=== PATIENT | female | born 1995 | race African-American/Black ===

== ENCOUNTER 2020-03-14 13:15 | Outpatient (RCR) | payer OTHER, SELFPAY ==
--- NOTE | ~2020-03-14 | US_ITS ---
EXAMINATION: US OB follow up w BPP DATE: 03/14/2020 15:06 INDICATION: Large for gestational age. Third trimester. TECHNIQUE: Real-time pelvic ultrasound was performed. COMPARISON: None. FINDINGS: There is a single living fetus in vertex presentation. The placenta is anterior. heart rate is 130 beats per minute (bpm). The amniotic fluid index is 9.6 cm, which is normal. The following biometric data were obtained: Biparietal diameter (BPD): 9.0 cm; head circumference (HC): 32.9 cm; abdominal circumference (AC): 32 .8 cm; femur length (FL): 7.0 cm. These measurements are concordant. Estimated weight is 2969 g +/- 445 g, which correlates with 38th percentile when 04/02/20 is use d as estimated date of delivery. As single measurements, these parameters are each equal to the following estimated gestational ages w ith ranges of +/- 2 standard deviations: BPD: 36 weeks 4 days. HC: 37 weeks 2 days. AC: 36 weeks 5 days. FL: 35 weeks 6 days. estimated gestational age based solely on measurements from this exam is 36 weeks 4 days +/- 2 weeks 4 days. Biophysical profile performed by the technologist: breathing (30 sec sustained breathing in 30 minutes): 2 out of 2 movement (3 gross body movements in 30 minutes): 2 out of 2 tone (one episode of rxapwdn-yefwuzvpt-upuaygw limb movement): 2 out of 2 Amniotic fluid pocket (2 cm): 2 out of 2 Total score: 8 out of 8 IMPRESSION: 1. Single living fetus in vertex presentation. 2. Estimated weight is 2969 g +/- 445 g, which correlates with 38th percentile when 04/02/20 is used as estimated date of delivery. 3. Biophysical profile 8 out of 8. Reviewed, dictated and finalized at location A. IMPRESSION: 1. Single living fetus in vertex presentation. 2. Estimated weight is 2969 g +/- 445 g, which correlates with 38th perc entile when 04/02/20 is used as estimated date of delivery. 3. Biophysical profile 8 out of 8.
[2020-03-14 15:38] VITALS: BP 131/84; PULSE 121
== END 2020-03-30 12:54 | disposition home or self-care (01) ==
LOC: ANHOBOP 13:15
PROVIDERS: Visit Provider Obstetrics & Gynecology
DX: O36.63X0 Maternal care for excessive fetal growth, third trimester, not applicable or unspecified (principal); Z3A.37 37 weeks gestation of pregnancy
CPT/HCPCS: 59025; 76816; 76819

== ENCOUNTER 2020-03-30 04:57 | Inpatient (IN) | payer OTHER, SELFPAY ==
[2020-03-30] VITALS (36 sets, daily range): BP systolic 101–146; BP diastolic 49–108; PULSE 78–127; RESP 18; TEMP 36.3–36.7; BMI 35.9
--- NOTE | 2020-03-30 04:57 | LDADM ---
This patient, Richard Hernandez, was admitted to Labor/Delivery/Recovery 108 on 03/30/20 at 04:57. Plans for labor, pain management and were discussed with patient. Patient/family oriented to hospital policies and general routines including ID bracelet, bed and alarms, visiting hours, pain management, procedures, bathroom and other care routines, personal items, smoking policy, room service/diet and guest tray routines, security routines, and visiting hours. Patient/Family are encouraged to report perceived risks to care and to ask questions if they do not understand what they are told or what they should do. See OBIX for further documentation.
[2020-03-30 05:31] LABS: Basophils Percent Auto 0.3 % (0.2-1.2); Eosinophils Absolute Auto 0.1 K/mm3 (0-0.3); Eosinophils Percent Auto 0.9 % (0-4.4); Hematocrit 36.8 % (37.0-47.0); Hemoglobin 12.4 g/dL (12.0-15.0); Immature Granulocyte Absolute 0.12 K/mm3 (0.00-0.031); Immature Granulocyte Percent A 1.2 % (0-0.5); Lymphocytes Absolute Auto 2.52 K/mm3 (0.9-3.2); Mean Corpuscular HGB Conc 33.7 g/dl (32-36); Mean Corpuscular Hemoglobin 27.3 pg (26-34); Mean Corpuscular Volume 81.1 fl (80-100); Mean Platelet Volume 12.5 fl (7.4-10.4); Monocytes Absolute Auto 1.3 K/mm3 (0.1-0.6); Monocytes Percent Auto 13.3 % (2.6-8.5); Neutrophils Percent Auto 59.3 % (45.5-73.1); Platelet Count Result 154 k/mm3 (150-375); Red Blood Count 4.54 M/mm3 (4.2-5.4); Red Cell Distribution Width 13.7 % (11.5-14.5); White Blood Count 10.1 K/mm3 (4.5-10.0)
[2020-03-30] MEDS: OXYTOCIN 30 UNITS/NS 500 ML 30 UNITS/500 ML BAG IV CONT (05:43)
[2020-03-30] MEDS: LACTATED RINGERS 1,000 ML 125 ML IV CONT (05:43)
[2020-03-30 08:53] LABS: Rapid Plasma Reagin Non-Reactive (NonReactive)
--- NOTE | 2020-03-30 12:10 | PM.IMHP ---
H&P: HPI History of Present Illness Date/Time: 03/30/20 06:10 Chief complaint: Induction Narrative: Richard Hernandez is a 24 year old female AAF G1 at 39w4d here for Induction of labor H/O Obesity, impaired glucose tolerance, history of chlamydia, and low progesterone She understands her condition procedure and risks and agrees to proceedShe understands maternal or indications for delivery with the risk involved including but not limited to bleeding infection injury to bladder bowel baby pelvic vessels and DVT pneumoniae wound infections endometriosis UTI and risk of anesthesia Review of Systems Review of Systems: All systems reviewed & are unremarkable except as noted in HPI and below Constitutional: Constitutional: Reports no additional constitutional complaints Eyes: Eyes: Reports no additional eye complaints ENT: Reports system reviewed and no additional complaints, except as documented Cardiovascular: Cardiovascular: Reports no additional cardiovascular complaints Respiratory: Respiratory: Reports no additional respiratory complaints Gastrointestinal: Gastrointestinal: Reports no additional gastrointestinal complaints Genitourinary: Genitourinary: Reports no additional female genitourinary complaints Musculoskeletal: Musculoskeletal: Reports no additional musculoskeletal complaints Integumentary/Breasts: Skin/Breast: Reports system reviewed and no additional complaints, except as docu Neurologic: Reports system reviewed and no additional complaints, except as documented Psychiatric: Psychiatric: Reports no additional psychiatric complaints Endocrine: Endocrine: Reports no additional endocrine complaints Hematologic/Lymphatic: Hematologic/Lymphatic: Reports no additional hematologic/lymphatic complaints Allergic/Immunologic: Allergic/Immunologic: Reports no additional allergic/immunologic complaints [facility] Past Medical History Medical History (Updated 03/30/20 @ 15:11 by Valeriano Herron MD) Abnormal Pap smear of cervix History of chlamydia History of impaired glucose tolerance Obesity Family History Family History Father Diabetes mellitus Mother Diabetes mellitus Social History Social History (Updated 03/30/20 @ 15:07 by Valeriano Herron MD) Smoking status: Never smoker Second hand tobacco smoke exposure: No Alcohol intake: never Substance use: never Living arrangements: with family Occupation/Education: unemployed Gender identity (if verbalized by the patient): Female Sexual Orientation (if Verbalized by the Patient): Straight or Heterosexual Spiritual care concerns: No Agree to blood products: Yes Meds Home Medications and Allergies Home Medications Medication Instructions Recorded Confirmed Type [id number] fumarate-FA 1 tablet PO DAILY 03/05/20 03/05/20 History [] Allergies Allergy/AdvReac Type Severity Reaction Status Date / Time No Known Allergies Allergy Verified 03/05/20 12:32 Vital Signs Vital Signs - 24 hr 03/30/20 05:15 03/30/20 05:31 03/30/20 06:01 Temperature 97.5 F L Pulse Rate 109 H 108 H 78 Respiratory Rate 18 Blood Pressure 135/98 H 117/84 112/89 03/30/20 06:16 03/30/20 06:22 03/30/20 06:31 Temperature Pulse Rate 96 99 104 H Respiratory Rate Blood Pressure 120/95 H 131/83 131/86 03/30/20 07:00 03/30/20 07:01 03/30/20 07:30 Temperature 97.4 F L Pulse Rate 104 H 95 Respiratory Rate Blood Pressure 128/80 136/86 03/30/20 08:01 03/30/20 08:31 03/30/20 09:01 Temperature Pulse Rate 101 H 104 H 104 H Respiratory Rate Blood Pressure 107/83 122/84 109/87 03/30/20 10:00 03/30/20 10:25 03/30/20 11:01 Temperature 98.1 F Pulse Rate 110 H Respiratory Rate Blood Pressure 128/96 H 143/108 H 03/30/20 11:22 03/30/20 11:30 03/30/20 12:00 Temperature Pulse Rate 109 H 107 H 106 H Respiratory R
--- NOTE | 2020-03-30 14:36 | P.PNAN_ITS ---
Anes - Eval Pre Procedure Procedure: Labor Epidural Date/Time: 03/30/20 14:36 Pre Op Diagnosis: Induction Patient Data Age: 24 Gender: F Height: 1.63 m Weight: 95 kg Last Vital Signs Temp 36.7 C 03/30/20 10:25 Pulse 108 H 03/30/20 14:30 Resp 18 03/30/20 05:15 BP 138/86 03/30/20 14:30 Allergies Allergy/AdvReac Type Severity Reaction Status Date / Time No Known Allergies Allergy Verified 03/05/20 12:32 Home Medications Medication Instructions Recorded Confirmed Type [id number] fumarate-FA 1 tablet PO DAILY 03/05/20 03/05/20 History [] Laboratory Tests 03/30/20 03/30/20 03/30/20 05:19 05:20 05:20 WBC 10.1 K/mm3 H K/mm3 (4.5-10.0) RBC 4.54 M/mm3 M/mm3 (4.2-5.4) Hgb 12.4 g/dL g/dL (12.0-15.0) Hct 36.8 % L % (37.0-47.0) MCV 81.1 fl fl (80-100) MCH 27.3 pg pg (26-34) MCHC 33.7 g/dl g/dl (32-36) RDW 13.7 % % (11.5-14.5) Plt Count 154 k/mm3 k/mm3 (150-375) MPV 12.5 fl H fl (7.4-10.4) Immature Gran % (Auto) 1.2 % H % (0-0.5) Neut % (Auto) 59.3 % % (45.5-73.1) Lymph % (Auto) 25.0 % % (18.3-44.2) [place]nam % (Auto) 13.3 % H % (2.6-8.5) Eos % (Auto) 0.9 % % (0-4.4) Baso % (Auto) 0.3 % % (0.2-1.2) Lymph # (Auto) 2.52 K/mm3 K/mm3 (0.9-3.2) [place]nam # (Auto) 1.3 K/mm3 H K/mm3 (0.1-0.6) Eos # (Auto) 0.1 K/mm3 K/mm3 (0-0.3) Baso # (Auto) 0.0 K/mm3 K/mm3 (0.0-0.1) Abs Immat Gran (auto) 0.12 K/mm3 H K/mm3 (0.00-0.031) Absolute Neuts (auto) 6.0 K/mm3 K/mm3 (1.3-6.7) Absolute Nucleated RBC 0.0 K/mm3 K/mm3 (0.0-0.012) Nucleated RBC % 0.0 % % (0.0-0.2) RPR Non-reactive (NonReactive) Blood Type O Positive Antibody Screen Negative Patient hx anesthesia problems: none Family hx anesthesia problems: none PMFSH Family History Family History Father Diabetes mellitus Mother Diabetes mellitus Social History Social History Smoking status: Never smoker Substance use: never Gender identity (if verbalized by the patient): Female Spiritual care concerns: No Exam Day of Procedure 03/30/20 14:36 Patient weight: obese Heart: regular rate and rhythm Lungs: normal air movement Airway: Mallampati scale class III Neurological: alert and oriented
--- NOTE | 2020-03-30 15:13 | WPDHPUPDATE1 ---
History and Physical Update Update Date/Time: 03/30/20 15:13 History and Physical has been reviewed, including an updated exam of the patient. There are NO changes in the patient's condition. Risks, benefits, and alternatives have been discussed and questions answered. Patient agrees to proceed with procedure. Richard Hernandez is a 24 year old female AAF G1 at 39w4d here for Induction of labor H/O Obesity, impaired glucose tolerance, history of chlamydia, and low progesterone She understands her condition procedure and risks and agrees to proceedShe understands maternal or indications for delivery with the risk involved including but not limited to bleeding infection injury to bladder bowel baby pelvic vessels and DVT pneumoniae wound infections endometriosis UTI and risk of anesthesia
--- NOTE | 2020-03-30 15:14 | WPDOBADMIT ---
Obstetrics - Admit Note Admission Note: record reviewed. No pertinent additions to the history and/or any subsequent changes in the physical findings that are not consistent with the expected course of the were found. Additions to the history and/or subsequent changes in the physical findings follow. Mitzy Guerrerorebeccamiguel angelchaim Hernandez is a 24 year old female AAF G1 at 39w4d here for Induction of labor H/O Obesity, impaired glucose tolerance, history of chlamydia, and low progesterone She understands her condition procedure and risks and agrees to proceedShe understands maternal or indications for delivery with the risk involved including but not limited to bleeding infection injury to bladder bowel baby pelvic vessels and DVT pneumoniae wound infections endometriosis UTI and risk of anesthesia one.
--- NOTE | 2020-03-30 15:15 | PM.OBPNLAB ---
Pain Control Date/time seen: 03/30/20 15:15 Pain control: tolerating well Pelvic Exam Dilation (cm): 0 Effacement (%): 50 station: -4 Amniotic membrane status: Intact Contractions Monitor mode: External Contraction pattern: Regular Contraction intensity: Mild Status status: Category l Assessment and Plan Assessment: induction ongoing Plan: continuous present management
[2020-03-31] VITALS (25 sets, daily range): BP systolic 109–149; BP diastolic 58–115; PULSE 83–111; TEMP 37; O2SAT 98–100
[2020-03-31] MEDS: LACTATED RINGERS 1,000 ML 125 ML IV CONT (02:05)
--- NOTE | 2020-04-12 20:22 | PM.OBDSVD ---
DS: Admitting Diagnosis Admitting Diagnosis Admitting Diagnosis: Induction DS: Discharge Diagnosis Discharge Diagnosis (1) Failed induction of labor: Code(s): O61.9 - Failed induction of labor, unspecified Status: Acute OB - DS: Summary Hospital Course Time spent discussing smoking cessation with patient: 3 to 10 minutes OB Procedures : Ultrasound OB Procedures Intrapartum: Other OB Procedures: : Other Status at Discharge Functional status at discharge: independent ambulation Overall status at discharge: patient is back to baseline Time Spent with Patient Time attestation: Total time spent providing and/or coordinating discharge services: Exam Const: General: cooperative HENMT: Head: normal to inspection Eyes: General: appearance normal, both eyes and all related structures Neck: Neck: normal visual inspection Chest: Chest palpation & inspection: normal inspection of the chest Resp: Effort & Inspection: normal respiratory effort Cardio: Palpation: normal PMI GI: Inspection: normal to inspection : External Female Exam: normal external appearance Back/Spine/Pelvis: Back: no CVA tenderness Skin: General skin exam: normal color Neuro: General: patient oriented x3 Extrem: General: normal to inspection Psych: Appearance: grossly normal Mental Status: mental status grossly normal Discharge Plan Discharge Attending physician on discharge: Valeriano Herron Discharging Clinician: Valeriano Herron Anticipated Discharge Date/Time: 03/31/20 20:20 Patient Disposition: Home, Self-Care Activity: as tolerated Diet: as tolerated Discharge Instructions: OB ANTEPARTUM DISCHARGE INSTRUCTIONS This information is given to help you properly care for yourself at home after your discharge from the hospital. Follow these instructions until your doctor tells you otherwise. DIET: Eat Three Well Balanced Meals per Day Drink at Least Eight 8-Ounce Glasses of Caffeine-Free Beverages Daily Additional Diet Instructions: ACTIVITY: As Tolerated Additional Activity Instructions: RETURN TO LABOR AND DELIVERY IF YOU HAVE: Any Change In Baby's Normal Movement Pattern Any Leakage of Fluid Contractions 3-5 Minutes Apart with Increasing Intensity Vaginal Bleeding Additional Reasons to Return to Labor and Delivery: Contractions may feel like abdominal pain, tightening, cramping, pressure, back ache, or thigh ache. FOLLOW-UP CARE: Call Office and Make Appointment To see in/on 04/04/20 Valuables released to patient or family? N/A Medications from home returned to patient? N/A I Acknowledge Receipt of and Understand the Above Instructions IF YOU HAVE ANY QUESTIONS REGARDING THESE INSTRUCTIONS, PLEASE CALL [phone]. IF PROBLEMS ARISE, CALL YOUR PROVIDER. IF EMERGENCY CARE IS NEEDED, [facility] EMERGENCY ROOM IS AVAILABLE 24 HOURS A DAY. Stand Alone Forms: General Discharge Information Follow-up/Referrals: Valeriano Herron MD [Physician] - Discharge Medications: No Action hydrocodone-acetaminophen 5-325 mg Tablet 1 tab PO Q6H PRN (Reason: Moderate Pain (4-6)) Qty: 28 RF: 0 polysaccharide iron complex 150 mg iron Capsule 150 mg PO BIDWM Qty: 120 RF: 2 ibuprofen 600 mg Tablet 600 mg PO Q6H Qty: 100 RF: 1 28-800 mg-mcg Tablet 1 tablet PO DAILY Qty: 100 RF: 2 Date of admission: 03/30/20 04:57 Primary Care Provider: PHYSICIAN,POSTDOCTORAL SCIENTIST Admitting Provider: Valeriano Herron Attending physician on admission: Valeriano Herron Condition: Stable
== END 2020-03-31 05:30 | disposition home or self-care (01) | DRG 566 ==
PROVIDERS: Admitting Provider Obstetrics & Gynecology; Visit Provider Obstetrics & Gynecology
DX: O99.810 Abnormal glucose complicating pregnancy (principal); Z3A.39 39 weeks gestation of pregnancy; O61.0 Failed medical induction of labor; O99.214 Obesity complicating childbirth; E66.9 Obesity, unspecified; O98.313 Other infections with a predominantly sexual mode of transmission complicating pregnancy, third trimester; A56.8 Sexually transmitted chlamydial infection of other sites
CPT/HCPCS: 36415; 85025; 86592; 86850; 86900; 86901; J2590; J7120

== ENCOUNTER 2020-04-01 06:53 | Inpatient (IN) | payer OTHER, SELFPAY ==
--- NOTE | 2020-03-31 08:21 | PC.NURSE ---
Preadmission information recopied from original done on 03/05/20 by Valeria Frye RN.
--- NOTE | 2020-03-31 18:55 | PM.IMHP ---
H&P: HPI History of Present Illness Date/Time: 03/31/20 18:55 Chief complaint: failed induction Narrative: Richard Hernandez is a 24 year old female primigravida AAF presents for primary LTS c section at 39w4d. after failed induction due to pelvic outlet disorder with CPD and now need for primary section for delivery of healthy baby. Patient understands and accepts and agrees to procedure. Review of Systems Review of Systems: All systems reviewed & are unremarkable except as noted in HPI and below Constitutional: Constitutional: Reports no additional constitutional complaints Eyes: Eyes: Reports no additional eye complaints ENT: Reports system reviewed and no additional complaints, except as documented Cardiovascular: Cardiovascular: Reports no additional cardiovascular complaints Respiratory: Respiratory: Reports no additional respiratory complaints Gastrointestinal: Gastrointestinal: Reports no additional gastrointestinal complaints Genitourinary: Genitourinary: Reports no additional female genitourinary complaints Musculoskeletal: Musculoskeletal: Reports no additional musculoskeletal complaints Integumentary/Breasts: Skin/Breast: Reports system reviewed and no additional complaints, except as docu Neurologic: Reports system reviewed and no additional complaints, except as documented Psychiatric: Psychiatric: Reports no additional psychiatric complaints Endocrine: Endocrine: Reports no additional endocrine complaints Hematologic/Lymphatic: Hematologic/Lymphatic: Reports no additional hematologic/lymphatic complaints Allergic/Immunologic: Allergic/Immunologic: Reports no additional allergic/immunologic complaints PMF Past Medical History Medical History Abnormal Pap smear of cervix History of chlamydia History of impaired glucose tolerance Obesity Family History Family History Father Diabetes mellitus Mother Diabetes mellitus Social History Social History Smoking status: Never smoker Second hand tobacco smoke exposure: No Alcohol intake: never Substance use: never Gender identity (if verbalized by the patient): Female Spiritual care concerns: No Agree to blood products: Yes Meds Home Medications and Allergies Home Medications Medication Instructions Recorded Confirmed Type 1 tablet PO DAILY 03/05/20 03/05/20 History Allergies Allergy/AdvReac Type Severity Reaction Status Date / Time No Known Allergies Allergy Verified 03/05/20 12:32 Exam Const: General: cooperative, healthy appearing, comfortable, no acute distress, alert, awake and Physically active HENMT: Head: normal to inspection Eyes: General: appearance normal, both eyes and all related structures Neck: Neck: normal visual inspection and full ROM Chest: Chest palpation & inspection: normal inspection of the chest Breast/axilla inspection: normal inspection of the breasts Breast/axilla palpation: normal palpation of the breasts Resp: Effort & Inspection: normal respiratory effort Auscultation: clear to auscultation bilaterally Cardio: Jugular venous distension: no JVD Palpation: normal PMI Rate: regular rate Rhythm: regular rhythm Heart sounds: S1 normal heart sound present and S2 normal heart sound present GI: Inspection: normal to inspection and obesity GI Palp: Yes Soft to palpation Percussion: Yes normal to percussion Auscultation: normal bowel sounds : External Female Exam: normal external appearance Manual OB Exam: Not dilated nor effaced Back/Spine/Pelvis: Back: no CVA tenderness Cervical Spine: normal cervical lordosis Skin: General skin exam: normal color and no rashes or lesions noted Neuro: General: patient oriented x3, gait normal, tone normal, moves all extremities, Normal light touch and michelle
--- NOTE | 2020-03-31 19:09 | WPDHPUPDATE1 ---
History and Physical Update Update Date/Time: 04/01/20 07:09 History and Physical has been reviewed, including an updated exam of the patient. There are NO changes in the patient's condition. Risks, benefits, and alternatives have been discussed and questions answered. Patient agrees to proceed with procedure. Richard Hernandez is a 24 year old female primigravida AAF presents for primary LTS c section at 39w4d. after failed induction due to pelvic outlet disorder with CPD and now need for primary section for delivery of healthy baby. Patient understands and accepts and agrees to procedure.
--- NOTE | 2020-03-31 19:10 | WPDOBADMIT ---
Obstetrics - Admit Note Admission Note: record reviewed. No pertinent additions to the history and/or any subsequent changes in the physical findings that are not consistent with the expected course of the were found. Additions to the history and/or subsequent changes in the physical findings follow. None. Richard Hernandez is a 24 year old female primigravida AAF presents for primary LTS c section at 39w4d. after failed induction due to pelvic outlet disorder with CPD and now need for primary section for delivery of healthy baby. Patient understands and accepts and agrees to procedure.
--- NOTE | 2020-03-31 19:12 | PM.OBTRLD ---
OB - Triage/Final Diagnosis Visit Information Date of evaluation: 03/30/20 Comments/Additional reasons for admission: induction failed after 24hr pitocin and no cervix change discharged 0600 03/31/20 Evaluation Baseline heart rate: 144 Variability: Average (6-10) monitor accelerations: Present monitor decelerations: None Cervical dilation (cm): 0 Cervical effacement (%): 50 station: -4 Final Diagnosis (1) Failed induction of labor: Code(s): O61.9 - Failed induction of labor, unspecified Status: Acute
[2020-04-01] VITALS (55 sets, daily range): BP systolic 104–143; BP diastolic 49–114; PULSE 72–153; RESP 18; TEMP 36.5–37; O2SAT 95–100; BMI 36.3
--- NOTE | 2020-04-01 07:21 | WPDANESEPPF ---
Anes - Initial Pre Proc Eval Procedure: Operation Date: 04/01/20 09:00 Proposed Procedures p Primary Section - Valeriano Herron MD Date/Time: 04/01/20 07:21 Surgeon: Valeriano Herron MD Pre Op Diagnosis: C Section Patient Data Age: 24 Gender: F Height: Weight: Last Vital Signs Pulse 105 H 04/01/20 07:19 BP 143/92 H 04/01/20 07:19 Allergies Allergy/AdvReac Type Severity Reaction Status Date / Time No Known Allergies Allergy Verified 03/05/20 12:32 Home Medications Medication Instructions Recorded Confirmed Type 1 tablet PO DAILY 03/05/20 03/05/20 History Patient hx anesthesia problems: none Family hx anesthesia problems: none PMFSH Past Medical History Medical History Abnormal Pap smear of cervix CPD (cephalo-pelvic disproportion) Failed induction of labor History of chlamydia History of impaired glucose tolerance Obesity Family History Family History Father Diabetes mellitus Mother Diabetes mellitus Social History Social History Smoking status: Never smoker Second hand tobacco smoke exposure: No Alcohol intake: never Substance use: never Gender identity (if verbalized by the patient): Female Spiritual care concerns: No Agree to blood products: Yes Anes - Eval Final PreProcedure Day of Procedure 04/01/20 07:21 Patient weight: obese Heart: regular rate and rhythm Lungs: clear to auscultation Airway: Mallampati scale class II Neurological: alert and oriented Last oral intake: >/= 8 hours ASA classification: II Emergent: no Anesthetic plan: proceed Anesthesia type and monitoring: regional spinal and standard monitoring Informed Consent: The patient's anesthetic plan and its attendant risks and benefits were discussed with the patient/family/POA. Questions were solicited and answers provided to the satisfaction of the patient/family/POA.
[2020-04-01] MEDS: LACTATED RINGERS 1,000 ML 125 ML IV CONT ×2 (07:30→08:40)
[2020-04-01 07:44] LABS: Basophils Percent Auto 0.3 % (0.2-1.2); Eosinophils Absolute Auto 0.1 K/mm3 (0-0.3); Eosinophils Percent Auto 1.3 % (0-4.4); Hematocrit 37.1 % (37.0-47.0); Hemoglobin 12.6 g/dL (12.0-15.0); Immature Granulocyte Absolute 0.09 K/mm3 (0.00-0.031); Immature Granulocyte Percent A 1.2 % (0-0.5); Lymphocytes Absolute Auto 2.04 K/mm3 (0.9-3.2); Lymphocytes Percent Auto 26.8 % (18.3-44.2); Mean Corpuscular Hemoglobin 27.5 pg (26-34); Mean Corpuscular Volume 80.8 fl (80-100); Monocytes Absolute Auto 0.9 K/mm3 (0.1-0.6); Monocytes Percent Auto 12.2 % (2.6-8.5); Neutrophils Absolute Auto 4.4 K/mm3 (1.3-6.7); Neutrophils Percent Auto 58.2 % (45.5-73.1); Platelet Count Result 155 k/mm3 (150-375); Red Blood Count 4.59 M/mm3 (4.2-5.4); Red Cell Distribution Width 14.1 % (11.5-14.5); White Blood Count 7.6 K/mm3 (4.5-10.0)
--- NOTE | 2020-04-01 07:46 | LDADM ---
This patient, Richard Hernandez, was admitted to Labor/Delivery/Recovery 120 on 04/01/20 at 06:53. Plans for labor, pain management and were discussed with patient. Patient/family oriented to hospital policies and general routines including ID bracelet, bed and alarms, visiting hours, pain management, procedures, bathroom and other care routines, personal items, smoking policy, room service/diet and guest tray routines, security routines, and visiting hours. Patient/Family are encouraged to report perceived risks to care and to ask questions if they do not understand what they are told or what they should do. See OBIX for further documentation.
[2020-04-01] MEDS: ceFAZolin 2 GM/D5W 50 ML 2 GM/50 ML BAG IVPB (09:03)
--- NOTE | 2020-04-01 10:01 | PM.OBPRVD ---
OB - Delivery Note Procedure Delivery date: 04/01/20 Procedure: Procedures Operation Date: 04/01/20 09:00 Primary low-transverse section with delivery of viable male and placenta Intrapartal events: Ceph-Pelvic Disproportion and Failure to Progress in Labor ( failed induction) Induction method: per pitocin protocol Delivery monitor: external FHT and external uterine Route of delivery: ( primary low-transverse) Episiotomy description: None Laceration Description: None Specimen: Yes ( placenta, cord blood, cord blood gases) Estimated blood loss (mL): 445 Anesthesia type: Spinal Disposition: floor Complications: none [place] Baby Date of : 04/01/20 Time of : 09:26 Weeks of gestation at delivery: 40 Infant gender: Male (Gomezjoshua Perkinsar) Weight (pounds): 9 Weight (ounces): 2 presentation: vertex position: Left Occiput Transverse Placenta delivery description: Manual Removal and Normal Configuration cord vessel description: 3 Vessels score one minute: 7 score five minutes: 9
--- NOTE | 2020-04-01 10:09 | P.OP_ITS ---
Procedure Note - Detailed Date of procedure: 04/01/20 Pre-op diagnosis: C Section term Failed medical induction of labor Cephalopelvic disproportion Impaired glucose tolerance Varicella nonimmune Post-op diagnosis: same ( delivered viable male infant and placenta) Procedure performed: primary low-transverse section with delivery of viable male infant and placenta Description of procedure: informed consent obtained patient was taken to the operating room where spinal anesthetic was administered in the sitting position, the patient was laid in the supine position and a Luke catheter was inserted and then her abdomen was prepped and then draped in the usual sterile fashion and a time-out was performed. A Pfannenstiel incision was made in the skin and the abdomen was open in layers with electrocautery the fascia was undermined both superior and inferior the rectus muscle the midline with the peritoneum entered with electrocautery and digitally widen. Transverse incision was made to the uterus and rupture membranes revealed clear amniotic fluid the uterine incision was digitally dissected bilaterally and the vertex was not engaged was delivered via the abdominal incision with the Nose and Throat bulb suction and the cord clamped and cut the infant was handed to the nursery nurse in attendance scores 7 and 9 weight 9-21 and 0.5 inches long born at 9:26 a.m. taken to the nursery in stable condition normal transition. Placenta cord gases cord blood obtained placenta delivered intact three-vessel cord the uterus contracted well Pitocin given intravenously and 10 units given into the myometrium. With the uterus externalized blood clots membranes removed from the intrauterine cavity the uterine incision was then repaired in 2 layers with 0 Vicryl in a running interlocking fashion the 2nd being an imbricating stitch [id number] sutures were required along the left margin of the uterine incision hemostasis excellent following this the blood clots removed from the cul-de-sac with irrigation and the uterus was returned to the peritoneal cavity the sponge needle and instrument counts were correct the anterior peritoneum and rectus muscles reapproximated with 0 Vicryl suture running fashion the fascia was then closed with 2. Quill the S RS system bilaterally Pavel's fascia reapproximated 3 0 plain and the skin was closed with absorbable adenike INSORB system following this Dermabond used on the skin and a Mepilex dressing was placed to the skin patient was taken to the recovery room in stable condition sponge needle instrument counts correct Anesthesia: spinal Surgeon: Valeriano Herron MD Change Management Coordinator: surgical assistant x2 Estimated blood loss (mL): 445 IV fluids (mL): 2,600 Urine output (mL): 300 Drains: Yes ( Luke) Packing: No Pathology: yes ( placenta, cord blood, cord blood gases) Complications: None Condition: stable Disposition: floor Findings: viable male name is Gomez Garcia born at 926a.m. on 04/01/2019 spontaneous respirations and cry no gross abnormalities on initial examination scores 7 and 9 at 1 and 5 minutes normal transition taken to the nursery stable condition weight 9 lb 2 oz length 20-1/2 inches long Indication for section failed induction CPD Finding at surgery macrosomia Antibiotic prophylaxis Ancef 2 g VT prevention SCDs Uterus tubes ovaries normal Counts correct No complications Taken to recovery room stable condition Spinal with Duramorph postop pain management
[2020-04-01] MEDS: OXYTOCIN 30 UNITS/NS 500 ML 30 UNITS/500 ML BAG 125 UNITS IV CONT (11:47)
[2020-04-01] MEDS: DEXTROSE 5%/0.45% SOD CHL 1,000 ML 125 ML IV CONT (17:15)
[2020-04-01] MEDS: LORATADINE 10 MG TABLET PO (22:29)
[2020-04-02] MEDS: IBUPROFEN 600 MG TABLET PO ×2 (04:18→15:04)
[2020-04-02 04:20] VITALS: BP 140/86; PULSE 100; RESP 18; TEMP 37.3; O2SAT 98
[2020-04-02 04:58] LABS: Basophils Percent Auto 0.2 % (0.2-1.2); Eosinophils Absolute Auto 0.1 K/mm3 (0-0.3); Eosinophils Percent Auto 0.4 % (0-4.4); Hematocrit 33.5 % (37.0-47.0); Hemoglobin 11.1 g/dL (12.0-15.0); Immature Granulocyte Absolute 0.09 K/mm3 (0.00-0.031); Immature Granulocyte Percent A 0.7 % (0-0.5); Lymphocytes Absolute Auto 1.48 K/mm3 (0.9-3.2); Lymphocytes Percent Auto 11.7 % (18.3-44.2); Mean Corpuscular HGB Conc 33.1 g/dl (32-36); Mean Corpuscular Hemoglobin 27.2 pg (26-34); Mean Corpuscular Volume 82.1 fl (80-100); Mean Platelet Volume 12.6 fl (7.4-10.4); Monocytes Absolute Auto 1.4 K/mm3 (0.1-0.6); Monocytes Percent Auto 11.3 % (2.6-8.5); Neutrophils Absolute Auto 9.6 K/mm3 (1.3-6.7); Neutrophils Percent Auto 75.7 % (45.5-73.1); Platelet Count Result 140 k/mm3 (150-375); Red Blood Count 4.08 M/mm3 (4.2-5.4); White Blood Count 12.7 K/mm3 (4.5-10.0)
[2020-04-02] MEDS: DOCUSATE SODIUM 100 MG CAPSULE PO (08:39)
[2020-04-02] MEDS: MULTIVIT/MIN/PREN/FOL AC/IRON TABLET 1 TAB PO (08:39)
[2020-04-02 08:40] VITALS: BP 112/66; PULSE 97; RESP 20; TEMP 36.5
--- NOTE | 2020-04-02 09:46 | WPDANLDPN2 ---
Anes-Prog Note L&D Date/Time: 04/02/20 09:46 Comfortable throughout: section Neuraxial method: spinal Epidural/Spinal procedure site: clean & non-tender Neuro status: Neuro function grossly intact. Cardiovascular status: normal Respiratory status: normal Airway patency: baseline Mental status: baseline Post-Op hydration status: normal Vital Signs: Last Vital Signs Temp 36.5 C 04/02/20 08:40 Pulse 97 04/02/20 08:40 Resp 20 04/02/20 08:40 BP 112/66 04/02/20 08:40 Pulse Ox 98 04/02/20 04:20 Pain score (VAS): 06/05 I/O: Intake & Output 04/01/20 04/02/20 04/02/20 23:59 07:59 15:59 Intake Total 1500 800 500 Output Total 2750 1450 Balance -1250 -650 500 Post-procedural complaints: none Patient feedback: Patient satisfied with anesthetic care.
--- NOTE | 2020-04-02 09:46 | WPDANLDNPN2 ---
Anes-Prog Note L&D-Neuraxial Date/Time: 04/02/20 09:46 Neuraxial medications: intrathecal PF morphine Opiod-related complaints: none Patient feedback: Patient satisfied with post-operative pain management.
--- NOTE | 2020-04-02 12:48 | P.PNOB_ITS ---
OB - PN: Subj Subjective Date/time seen: 04/02/20 12:48 POD#1 She reports doing well today. Her pain is controlled w/ PO pain meds. She has tolerated regular diet. She has ambulated. She is voiding and passing flatus. She reports her bleeding is light. She is bottle feeding. She would like her son to be circumcised. She would like to go home tomorrow. She denies fever, chills, headaches, vision changes, nausea, vomiting, shortness of breath, chest pain, dizziness or palpitations. OB - PN: Obj Data Labs CBC & Chem 7: 04/02/20 04:27 Labs: Laboratory Results - last 24 hr 04/01/20 04/02/20 07:36 04:27 WBC 12.7 H RBC 4.08 L Hgb 11.1 L Hct 33.5 L MCV 82.1 MCH 27.2 MCHC 33.1 RDW 14.0 Plt Count 140 L MPV 12.6 H Immature Gran % (Auto) 0.7 H Neut % (Auto) 75.7 H Lymph % (Auto) 11.7 L [place] % (Auto) 11.3 H Eos % (Auto) 0.4 Baso % (Auto) 0.2 Lymph # (Auto) 1.48 [place] # (Auto) 1.4 H Eos # (Auto) 0.1 Baso # (Auto) 0.0 Abs Immat Gran (auto) 0.09 H Absolute Neuts (auto) 9.6 H Absolute Nucleated RBC 0.0 Nucleated RBC % 0.0 Blood Type O Positive OB - PN A/P Assessment and Plan (1) Delivery by elective section: Code(s): O82 - Encounter for delivery without indication Status: Acute Plan day: 1 Plan: routine care, discharge home (tomorrow) and follow up 6 weeks (w/ Dr. Herron) Comments: ER return precautions discussed Time Spent With Patient Time: Total time spent is greater than 50% in coordination of care (as documented) at patient's floor/unit and/or counseling patient: Time with patient: less than 15 minutes Review of Systems Review of Systems: All systems reviewed & are unremarkable except as noted in HPI and below (HPI) Exam Const: General: cooperative, healthy appearing, comfortable and no acute distress Resp: Effort & Inspection: normal respiratory effort Auscultation: clear to auscultation bilaterally Cardio: Rate: regular rate GI: Inspection: normal to inspection, non-distended and incision (covered w/ clean dressing) GI Palp: Yes abdominal tenderness (appropriate) and Yes Soft to palpation Auscultation: normal bowel sounds : Other: fundus firm at umbilicus Skin: General skin exam: normal color Neuro: General: patient oriented x3 Psych: Appearance: grossly normal and well kempt Affect: normal affect Attitude: cooperative
[2020-04-02 19:45] VITALS: BP 128/74; PULSE 85; RESP 18; TEMP 36.7; O2SAT 100
--- NOTE | 2020-04-02 19:45 | PC.NURSE ---
Patient viewed the discharge video Mother & Baby Care, The First Two Weeks . Patient was given the opportunity and encouraged to ask questions. Patient verbalized understanding of information shared and has been given the mother/baby guide for home reference.
[2020-04-03 09:00] VITALS: BP 124/75; PULSE 94; RESP 20; TEMP 36.8
[2020-04-03] MEDS: IBUPROFEN 600 MG TABLET PO (09:02)
[2020-04-03] MEDS: DOCUSATE SODIUM 100 MG CAPSULE PO (09:02)
[2020-04-03] MEDS: MULTIVIT/MIN/PREN/FOL AC/IRON TABLET 1 TAB PO (09:02)
--- NOTE | 2020-04-03 10:25 | PM.OBDSVD ---
DS: Admitting Diagnosis Admitting Diagnosis Admitting Diagnosis: C Section term Failed induction Cephalopelvic disproportion Impaired glucose tolerance Varicella nonimmune Obesity DS: Discharge Diagnosis Discharge Diagnosis (1) Term delivered: Code(s): O80 - Encounter for full-term uncomplicated delivery Status: Acute (2) Delivery by elective section: Code(s): O82 - Encounter for delivery without indication Status: Acute (3) CPD (cephalo-pelvic disproportion): Code(s): O33.9 - Maternal care for disproportion, unspecified Status: Acute (4) Failed induction of labor: Code(s): O61.9 - Failed induction of labor, unspecified Status: Acute (5) Maternal varicella, non-immune: Code(s): O09.899 - Supervision of other high risk pregnancies, unspecified trimester; Z28.3 - Underimmunization status Status: Acute (6) History of impaired glucose tolerance: Code(s): Z87.898 - Personal history of other specified conditions Status: Acute (7) Obesity: Code(s): E66.9 - Obesity, unspecified Status: Acute OB - DS: Summary Hospital Course Time spent discussing smoking cessation with patient: 3 to 10 minutes OB Procedures : Ultrasound OB Procedures Intrapartum: ( primary) low cervical, transverse OB Procedures: : None Peripartum Data Delivery Method: Section ( primary low-transverse) Laceration Description: None Episiotomy description: None Procedures: Procedures Operation Date: 04/01/20 09:00 primary low transverse section with delivery of viable male infant and placenta complications: none Renner 1: Gender: Male (Gomez Garcia 9lb2oz) Disposition of : home Status at Discharge Functional status at discharge: independent ambulation Overall status at discharge: patient is back to baseline Time Spent with Patient Time attestation: Total time spent providing and/or coordinating discharge services: Time spent: Less than 30 minutes Exam Const: General: cooperative, healthy appearing, comfortable, well developed, alert, awake and Physically active Nutritional Appearance: average body habitus Orientation/consciousness: oriented to person Limitations: no limitations HENMT: Head: normal to inspection Eyes: General: appearance normal, both eyes and all related structures Neck: Neck: normal visual inspection and full ROM Chest: Chest palpation & inspection: normal inspection of the chest Breast/axilla inspection: normal inspection of the breasts Breast/axilla palpation: normal palpation of the breasts Resp: Effort & Inspection: normal respiratory effort Auscultation: clear to auscultation bilaterally Cardio: Jugular venous distension: no JVD Palpation: normal PMI Rate: regular rate Rhythm: regular rhythm Heart sounds: S1 normal heart sound present and S2 normal heart sound present GI: Inspection: normal to inspection, incision ( dressing dry and intact) and obesity GI Palp: Yes Soft to palpation and Yes Firmness to palpation present (GI) ( uterus) Percussion: Yes normal to percussion Auscultation: normal bowel sounds : General: Yes no CVA tenderness External Female Exam: normal external appearance Urinary Catheter: Urinary Catheter: urine clear Back/Spine/Pelvis: Back: no CVA tenderness Cervical Spine: normal cervical lordosis Skin: General skin exam: normal color and no rashes or lesions noted Neuro: General: oriented to person, patient oriented x3, gait normal, tone normal, moves all extremities, Normal light touch and pain sensation, no meningeal signs, no focal motor deficits and CN's II-XI intact bilaterally Cognition (Neuro): normal cognition Speech: normal speech Gait exam (Neuro): Normal gait present Motor exam (neuro): 5/5 motor strength present throughout Sensory Exam: normal sensation Extrem: Gene
--- NOTE | 2020-04-03 12:01 | PC.NURSE ---
Patient's father called to the desk twice to ask when the patient would be discharged home. [facility]. He was informed that we were awaiting discharge from the substation manager and that once the orders were entered we could proceed with discharge. Pt's father very upset on the phone because he needed to be at work at 1300 and he felt that we were not acting with any urgency. He stated that we were sitting here drinking coffee and that we were not busy because there were no cars in the parking lot. Dr. Walker notified of pt's ride situation and he agreed to come to the nursery to discharge the . Mother updated that substation manager had been called and that he would be up to see baby as soon as he could. Mother and discharged as quickly as possible to accommodate their needs. Security notified to be on standby when pt was walked out in case father became verbally aggressive again. Pt's father was happy and agreeable when we got to the vehicle.
== END 2020-04-03 12:01 | disposition home or self-care (01) | DRG 540 ==
LOC: ANHLDR 10:34 → ANHOB2 12:37
PROVIDERS: Admitting Provider Obstetrics & Gynecology; Visit Provider Obstetrics & Gynecology
PROC: 10D00Z1 Extraction of Products of Conception, Low, Open Approach (ICD-10-PCS; CPT 59514; principal; 2020-04-01 09:00)
DX: O61.0 Failed medical induction of labor (principal); Z37.0 Single live birth; Z3A.39 39 weeks gestation of pregnancy; O33.5XX0 Maternal care for disproportion due to unusually large fetus, not applicable or unspecified; O99.214 Obesity complicating childbirth; E66.9 Obesity, unspecified
CPT/HCPCS: 36415; 85025; 88307; A9270; J0131; J0690; J1200; J2274; J2370; J2405; J2590; J7120

== ENCOUNTER → 2020-09-20 00:28 | Outpatient (CLI) | payer OTHER, SELFPAY ==
[2020-09-20 20:47] LABS: SARS-CoV-2 RNA PCR Positive
== END ==
PROVIDERS: PCP Physician Assistant; Visit Provider Obstetrics & Gynecology
DX: Z01.812 Encounter for preprocedural laboratory examination (principal); U07.1 COVID-19
CPT/HCPCS: C9803; U0003; U0005

== ENCOUNTER 2020-10-21 00:41 | Day surgery (SDC) | payer OTHER, SELFPAY ==
[2020-09-14 09:50] VITALS: BMI 29.1
--- NOTE | 2020-10-12 12:25 | PC.NURSE ---
Pt tested positive for Covid 09/20/20 - only symptoms were loss of taste and smell. Pt states no other changes in medical history or medications. New pre-op instructions reviewed with pt. Pt denies questions at this time.
--- NOTE | 2020-10-21 07:10 | PM.IMHP ---
H&P: HPI History of Present Illness Date/Time: 10/21/20 07:10 24-year-old female 1 para 1, 1 living child with a history of HPV with abnormal Pap smear HGSIL underwent colposcopy with cervical biopsies and ECC which revealed severe dysplasia of the cervix MAYITO 3 with endocervical involvement here now for LEEP loop electrosurgical excision procedure she understands her condition procedure and risks involved risk bleeding infection injury to the cervix risk of anesthesia she agrees to proceed informed consent obtained Chief Complaint: MAYITO 3 Review of Systems Review of Systems: All systems reviewed & are unremarkable except as noted in HPI and below PMFSH Past Medical History Medical History (Updated 10/21/20 @ 07:17 by Valeriano Herron MD) Abnormal Pap smear of cervix MAYITO III (cervical intraepithelial neoplasia grade III) with severe dysplasia CPD (cephalo-pelvic disproportion) Failed induction of labor HGSIL (high grade squamous intraepithelial dysplasia) History of chlamydia History of impaired glucose tolerance HPV (human papilloma virus) infection Obesity Surgical History Surgical History History of Family History Family History Father Diabetes mellitus Mother Diabetes mellitus Social History Social History Smoking status: Never smoker Second hand tobacco smoke exposure: No Alcohol intake: never Substance use: never Substance use type: does not use Living arrangements: with family Gender identity (if verbalized by the patient): Female Spiritual care concerns: No Agree to blood products: Yes Meds Home Medications and Allergies Home Medications Medication Instructions Recorded Confirmed Type No Home Medications 09/14/20 10/12/20 History Allergies Allergy/AdvReac Type Severity Reaction Status Date / Time No Known Allergies Allergy Verified 10/12/20 12:25 Exam Const: General: cooperative, healthy appearing, comfortable, no acute distress, well developed, alert, awake and Physically active HENMT: Head: normal to inspection Eyes: General: appearance normal, both eyes and all related structures Neck: Neck: normal visual inspection Chest: Chest palpation & inspection: normal inspection of the chest Resp: Effort & Inspection: normal respiratory effort Cardio: Rate: regular rate Rhythm: regular rhythm GI: Inspection: normal to inspection GI Palp: Yes Soft to palpation : External Female Exam: normal external appearance Back/Spine/Pelvis: Back: no CVA tenderness Skin: General skin exam: normal color Neuro: General: patient oriented x3, gait normal, tone normal and moves all extremities Extrem: General: normal to inspection Psych: Appearance: grossly normal Mental Status: mental status grossly normal Speech and movement: Normal speech and movement present Affect: normal affect Attitude: cooperative Thought process: Normal thought process present Thought content: Yes Normal thought content present Insight: Good insight present (Psych) Judgement: Good judgement present (Psych) H&P: Results Labs Labs: cervical biopsies revealed severe dysplasia with endocervical involvement Assessment and Plan Assessment and plan (1) HGSIL (high grade squamous intraepithelial dysplasia): Status: Acute (2) MAYITO III (cervical intraepithelial neoplasia grade III) with severe dysplasia: Code(s): D06.9 - Carcinoma in situ of cervix, unspecified Status: Acute (3) HPV (human papilloma virus) infection: Code(s): B97.7 - Papillomavirus as the cause of diseases classified elsewhere Status: Acute Additional Plan LEEP loop electrosurgical excision procedure Quality If No VTE Prophylaxis Answer both mechanical and pharmacologic: Reason no
--- NOTE | 2020-10-21 07:14 | WPDHPUPDATE1 ---
History and Physical Update Update Date/Time: 10/21/20 07:14 History and Physical has been reviewed, including an updated exam of the patient. There are NO changes in the patient's condition. Risks, benefits, and alternatives have been discussed and questions answered. Patient agrees to proceed with procedure. 24-year-old female 1 para 1, 1 living child with a history of HPV with abnormal Pap smear HGSIL underwent colposcopy with cervical biopsies and ECC which revealed severe dysplasia of the cervix MAYITO 3 with endocervical involvement here now for LEEP loop electrosurgical excision procedure she understands her condition procedure and risks involved risk bleeding infection injury to the cervix risk of anesthesia she agrees to proceed informed consent obtained
[2020-10-21 11:04] VITALS: BP 128/79; PULSE 81; RESP 16; TEMP 36.5; O2SAT 100
[2020-10-21] MEDS: ACETAMINOPHEN 500 MG TABLET 1000 MG PO (11:24)
[2020-10-21] MEDS: LACTATED RINGERS 1,000 ML 30 ML IV CONT (11:37)
--- NOTE | 2020-10-21 11:57 | WPDANESEPPF ---
Anes - Initial Pre Proc Eval Procedure: Operation Date: 10/21/20 13:00 Proposed Procedures p Loop Electrical Excision Procedure - Valeriano Herron MD Date/Time: 10/21/20 11:57 Surgeon: Valeriano Herron MD Pre Op Diagnosis: D06.9 Patient Data Age: 24 Gender: F Height: 5 ft 4 in Weight: 78.85 kg Last Vital Signs Temp 36.5 C 10/21/20 11:04 Pulse 81 10/21/20 11:04 Resp 16 10/21/20 11:04 BP 128/79 10/21/20 11:04 Pulse Ox 100 10/21/20 11:04 Allergies Allergy/AdvReac Type Severity Reaction Status Date / Time No Known Allergies Allergy Verified 10/21/20 11:23 Home Medications Medication Instructions Recorded Confirmed Type No Home Medications 09/14/20 10/21/20 History Patient hx anesthesia problems: none Family hx anesthesia problems: none PMFSH Past Medical History Medical History Abnormal Pap smear of cervix MAYITO III (cervical intraepithelial neoplasia grade III) with severe dysplasia CPD (cephalo-pelvic disproportion) Failed induction of labor HGSIL (high grade squamous intraepithelial dysplasia) History of chlamydia History of impaired glucose tolerance HPV (human papilloma virus) infection Obesity Surgical History Surgical History History of Family History Family History Father Diabetes mellitus Mother Diabetes mellitus Social History Social History Smoking status: Never smoker Second hand tobacco smoke exposure: No Alcohol intake: never Substance use: never Substance use type: does not use Living arrangements: with family Gender identity (if verbalized by the patient): Female Spiritual care concerns: No Agree to blood products: Yes Anes - Eval Final PreProcedure Day of Procedure 10/21/20 11:57 Patient weight: overweight Heart: regular rate and rhythm Lungs: clear to auscultation Airway: Mallampati scale class II Neurological: alert and oriented Last oral intake: >/= 8 hours ASA classification: II Emergent: no Anesthetic plan: proceed Anesthesia type and monitoring: general GIVS and standard monitoring Informed Consent: The patient's anesthetic plan and its attendant risks and benefits were discussed with the patient/family/POA. Questions were solicited and answers provided to the satisfaction of the patient/family/POA.
--- NOTE | 2020-10-21 13:23 | PM.PROC ---
Procedure Note - Detailed Date of procedure: 10/21/20 Pre-op diagnosis: D06.9 MAYITO-III Post-op diagnosis: same (MAYITO 3) Procedure performed: LEEP loop electrosurgical excision procedure Description of procedure: Informed consent obtained patient taken to the operating room given IV anesthesia placed in the semilithotomy position in David stirrups and then prepped and draped in sterile fashion. A time-out was performed. Weighted speculum was placed into the vagina and anterior retractor was placed, sutures were placed of 0 Vicryl at 3 and 9:00 a.m. of the cervix. Ascetic acid wash of the cervix followed by Lugol staining revealed the nonstaining areas the endocervix. Medium loop was then utilized to excise the ectocervix. Small loop was used to excise the endocervix. Ball electrode was used to achieve hemostasis. Monsel's solution was applied for hemostasis. The sutures were cut across the cervix and the patient procedure was completed. The instruments removed. Sponge needle instrument counts were correct complications none endocervix and ectocervix sent to pathology. Implants: None Anesthesia: MAC Surgeon: Valeriano Herron MD Taxi Driver Supervisor: assistant tennis professional times to julian Estimated blood loss (mL): 0 IV fluids (mL): 500 Urine output (mL): 100 Drains: No Packing: No Pathology: yes (LEEP ectocervix and endocervix) Complications: None Condition: stable Disposition: PACU Findings: Endocervix was disease nonstaining areas identified hemostasis excellent with sutures and Monsel's solution. Antibiotic prophylaxis Ancef 2 g
[2020-10-21 13:28] VITALS: BP 113/73; PULSE 75; RESP 12; O2SAT 96
--- NOTE | 2020-10-21 13:29 | PM.DS ---
DS: Admitting Diagnosis Admitting Diagnosis Admitting Diagnosis: MAYITO-III DS: Discharge Diagnosis Discharge Diagnosis (1) HPV (human papilloma virus) infection: Code(s): B97.7 - Papillomavirus as the cause of diseases classified elsewhere Status: Acute (2) MAYITO III (cervical intraepithelial neoplasia grade III) with severe dysplasia: Code(s): D06.9 - Carcinoma in situ of cervix, unspecified Status: Acute (3) HGSIL (high grade squamous intraepithelial dysplasia): Status: Acute DS: Summary Hospital Course Reason for hospitalization: Says MAYITO-III LEEP procedure Hospital Course: Uncomplicated Time spent discussing smoking cessation with patient: 3 to 10 minutes Status at Discharge Functional status at discharge: independent ambulation Overall status at discharge: patient is back to baseline Time Spent with Patient Time attestation: Total time spent providing and/or coordinating discharge services: Time spent: Less than 30 minutes Exam Const: General: cooperative HENMT: Head: normal to inspection Eyes: General: appearance normal, both eyes and all related structures Neck: Neck: normal visual inspection Chest: Chest palpation & inspection: normal inspection of the chest Resp: Effort & Inspection: normal respiratory effort Cardio: Rate: regular rate GI: Inspection: normal to inspection : External Female Exam: normal external appearance Back/Spine/Pelvis: Back: no CVA tenderness Skin: General skin exam: normal color Neuro: General: patient oriented x3 Extrem: General: normal to inspection Psych: Appearance: grossly normal DS: Data Data Completed and Pending Pending studies at discharge: Pending at discharge 10/21/20 13:18 Surgical [PTH] Routine Discharge Plan Discharge Patient Disposition: Home, Self-Care Discharge Instructions: Routine Stand Alone Forms: General Discharge Instructions Follow-up/Referrals: Valeriano Herron MD [Physician] - 6 Weeks Discharge Medications: New ibuprofen 600 mg tablet 600 mg PO Q6H PRN (Reason: pain) Qty: 30 RF: 0 Quality If No VTE Prophylaxis Answer both mechanical and pharmacologic: Reason no mechanical VTE proph: low risk/not indicated Reason no pharmacologic proph: low risk/not indicated
[2020-10-21 13:31] VITALS: BP 113/73; PULSE 82; O2SAT 100
[2020-10-21 13:45] VITALS: BP 124/63; PULSE 71
[2020-10-21 14:12] VITALS: BP 136/79; PULSE 78
[2020-10-21 14:15] VITALS: BP 135/75; PULSE 62; RESP 16
== END 2020-10-21 14:30 | disposition home or self-care (01) ==
PROVIDERS: PCP Physician Assistant; Visit Provider Obstetrics & Gynecology
PROC: 0UBC7ZZ Excision of Cervix, Via Natural or Artificial Opening (ICD-10-PCS; CPT 57522; principal; 2020-10-21 13:00)
DX: D06.1 Carcinoma in situ of exocervix (principal); A63.0 Anogenital (venereal) warts; B97.7 Papillomavirus as the cause of diseases classified elsewhere; E66.9 Obesity, unspecified; Z68.29 Body mass index [BMI] 29.0-29.9, adult
CPT/HCPCS: 57522; 88305; A9270; J0690; J2250; J2704; J3010; J7120

== ENCOUNTER 2023-01-29 15:32 | Emergency (ER) | payer OTHER, SELFPAY ==
[2023-01-29 15:42] VITALS: BP 109/59; PULSE 69; RESP 16; TEMP 35.8; O2SAT 99
--- NOTE | 2023-01-29 15:43 | ED.GENADULT ---
HPI - General Adult General Chief complaint: Nausea/Vomiting/Diarrhea Stated complaint: not able to keep food down,left side ear/head Time Seen by Provider: 01/29/23 15:43 Source: patient, RN notes reviewed and old records reviewed Mode of arrival: ambulatory Limitations: no limitations History of Present Illness HPI narrative: 27-year-old female who is 8 weeks presents to the [facility] with a headache and vomiting since this morning. States that she has a history of migraines but states it is worse than her normal. Has not even been able to keep water down. Ob is located in [facility]. Has not contacted OB. Denies fevers. No urinary symptoms. Onset (ago): hour(s) Treatments prior to arrival: none Related Data Home Medications Medication Instructions Recorded Confirmed No Home Medications 01/29/23 01/29/23 Allergies Allergy/AdvReac Type Severity Reaction Status Date / Time No Known Allergies Allergy Verified 01/29/23 16:16 Review of Systems Review of Systems: All systems reviewed & are unremarkable except as noted in HPI and below Constitutional: Constitutional: Reports as per HPI and Reports headache(s) Eyes: Eyes: Reports no additional eye complaints ENT: Reports system reviewed and no additional complaints, except as documented Cardiovascular: Cardiovascular: Reports no additional cardiovascular complaints, Denies chest pain and Denies dyspnea Respiratory: Respiratory: Reports no additional respiratory complaints, Denies chest congestion, Denies cough and Denies dyspnea Gastrointestinal: Gastrointestinal: Reports as per HPI, Denies abdominal pain, Reports nausea and Reports vomiting Musculoskeletal: Musculoskeletal: Reports no additional musculoskeletal complaints Integumentary/Breasts: Skin/Breast: Reports system reviewed and no additional complaints, except as docu Neurologic: Reports system reviewed and no additional complaints, except as documented Psychiatric: Psychiatric: Reports no additional psychiatric complaints Allergic/Immunologic: Allergic/Immunologic: Reports no additional allergic/immunologic complaints PMFSH Past Medical History Medical History Abnormal Pap smear of cervix MAYITO III (cervical intraepithelial neoplasia grade III) with severe dysplasia CPD (cephalo-pelvic disproportion) Failed induction of labor HGSIL (high grade squamous intraepithelial dysplasia) History of chlamydia History of impaired glucose tolerance HPV (human papilloma virus) infection Obesity Surgical History Surgical History History of Family History Family History Father Diabetes mellitus Mother Diabetes mellitus Social History Social History Smoking status: Never smoker Second hand tobacco smoke exposure: No Alcohol intake: never Substance use: never Substance use type: does not use Living arrangements: with family Occupation/Education: unemployed Gender identity (if verbalized by the patient): Female Sexual Orientation (if Verbalized by the Patient): Straight or Heterosexual Spiritual care concerns: No Agree to blood products: Yes Comments At the time of my signature, I reviewed and agree with the nursing past medical, surgical, social, and family history. There is no relevant family history pertinent to the patient complaint. Exam Const: General: cooperative, no acute distress, well developed, alert, ill appearing acutely (Mild), uncomfortable and well nourished Nutritional Appearance: well nourished Orientation/consciousness: patient oriented x3 Limitations: no limitations HENMT: Head: normal to inspection Ears: hearing grossly normal bilaterally, external ears normal, TM's normal bilaterally and EAC's normal Face/No
== END 2023-01-29 15:53 | disposition short-term general hospital (02) ==
LOC: EXPCOLL 15:37
PROVIDERS: Emergency Provider Nurse Practitioner; PCP Physician Assistant
DX: R51.9 Headache, unspecified (principal); R11.2 Nausea with vomiting, unspecified
CPT/HCPCS: 99212; G0463

== ENCOUNTER 2023-01-29 16:16 | Emergency (ER) | payer OTHER, SELFPAY ==
[2023-01-29 18:01] VITALS: BP 124/72; PULSE 60; RESP 16; TEMP 36.8; O2SAT 98
[2023-01-29 23:41] VITALS: BP 127/86; PULSE 79; RESP 18; O2SAT 100
[2023-01-29 23:58] LABS: Basophils Percent Auto 0.2 % (0.2-1.2); Hematocrit 41.6 % (37.0-47.0); Hemoglobin 13.8 g/dL (12.0-15.0); Immature Granulocyte Absolute 0.06 K/mm3 (0.00-0.031); Immature Granulocyte Percent A 0.5 % (0-0.5); Lymphocytes Absolute Auto 1.75 K/mm3 (0.9-3.2); Lymphocytes Percent Auto 14.8 % (18.3-44.2); Mean Corpuscular HGB Conc 33.2 g/dl (32-36); Mean Corpuscular Hemoglobin 27.9 pg (26-34); Mean Corpuscular Volume 84.2 fl (80-100); Mean Platelet Volume 11.3 fl (7.4-10.4); Monocytes Percent Auto 8.2 % (2.6-8.5); Neutrophils Percent Auto 76.3 % (45.5-73.1); Platelet Count Result 209 k/mm3 (150-375); Red Blood Count 4.94 M/mm3 (4.2-5.4); Red Cell Distribution Width 13.8 % (11.5-14.5); White Blood Count 11.8 K/mm3 (4.5-10.0)
[2023-01-30 00:09] LABS: Alanine Aminotransferase 19 U/L (6-35); Albumin Level 4.6 g/dL (3.5-5.1); Alkaline Phosphatase 57 U/L (38-126); Anion Gap 10 mmol/L (8-16); Aspartate Amino Transferase 23 U/L (14-36); Bilirubin,Total 0.4 mg/dL (0.2-1.3); Blood Urea Nitrogen 13 mg/dL (7-17); Calcium 9.9 mg/dL (8.4-10.2); Carbon Dioxide 22 mmol/L (22-30); Chloride 102 mmol/L (98-107); Estimated CRCL calculation 145 ml/min; Estimated Glomerular Filt Rate > 60; Glucose 89 mg/dL (65-110); Lipase 38 U/L (23-300); Potassium 4.5 mmol/L (3.4-5.0); Sodium 134 mmol/L (137-145)
[2023-01-30] MEDS: ACETAMINOPHEN 500 MG TABLET 1000 MG PO (00:09)
[2023-01-30] MEDS: diphenhydrAMINE HCl INJ 50 MG/ML VIAL 25 MG IV PUSH (00:10)
[2023-01-30] MEDS: METOCLOPRAMIDE HCL INJ 10 MG/2 ML VIAL IV PUSH (00:12)
[2023-01-30] MEDS: SODIUM CHLORIDE 0.9% IV 1,000 ML 999 ML IV CONT (00:13)
[2023-01-30 00:15] LABS: Appearance Urine Cloudy (Clear); Bacteria Urine 2+ /hpf; Bilirubin Urine Negative (Negative); Blood Urine Negative (Negative); Color Urine Dark Yellow (Yellow); Glucose Urine UA Negative (Negative); Ketones Urine 2+ mg/dL (Negative); Leukocyte Esterase Ur Trace LEU/UL (Negative); Mucus Urine Present /lpf; Nitrate Urine Negative (Negative); Protein Urine 1+ mg/dL (Negative); Specific Grav Ur 1.031 (1.001-1.035); Squamous Epithelial Cell Urine Many /hpf (Few)
--- NOTE | 2023-01-30 00:16 | ED.NAVMDI ---
HPI - Nausea/Vomiting/Diarrhea General Chief complaint: Nausea/Vomiting/Diarrhea Stated complaint: 8 weeks with vomiting and COLLINS - from [facility] Time Seen by Provider: 01/29/23 23:56 Source: patient Mode of arrival: ambulatory Limitations: no limitations History of Present Illness HPI Narrative: This is a 27-year-old G2, P1, about 9 weeks , that presents to the emergency department for nausea and vomiting ongoing today. Associated with a migraine headache. Does report history of migraines. The pain is throbbing in nature. She has not taken anything for pain today. Denies fevers, abdominal pain, or dysuria. Related Data Allergies Allergy/AdvReac Type Severity Reaction Status Date / Time No Known Allergies Allergy Verified 01/29/23 23:40 Review of Systems Review of Systems: CONSTITUTIONAL: Denies fever EYES: Denies visual changes GASTROINTESTINAL: Reports nausea and vomiting. Denies abdominal pain GENITOURINARY: Denies dysuria NEUROLOGIC: Reports headache. Denies numbness, or weakness. All systems reviewed & are unremarkable except as noted in HPI and below PMFSH Past Medical History Medical History Abnormal Pap smear of cervix MAYITO III (cervical intraepithelial neoplasia grade III) with severe dysplasia CPD (cephalo-pelvic disproportion) Failed induction of labor HGSIL (high grade squamous intraepithelial dysplasia) History of chlamydia History of impaired glucose tolerance HPV (human papilloma virus) infection Obesity Surgical History Surgical History History of Family History Family History Father Diabetes mellitus Mother Diabetes mellitus Social History Social History Smoking status: Never smoker Second hand tobacco smoke exposure: No Alcohol intake: never Substance use: never Substance use type: does not use Living arrangements: with family Occupation/Education: unemployed Gender identity (if verbalized by the patient): Female Sexual Orientation (if Verbalized by the Patient): Straight or Heterosexual Spiritual care concerns: No Agree to blood products: Yes Exam Narrative: GENERAL: Well-appearing, well-nourished, and in no acute distress. HEAD: Normocephalic, atraumatic. EYES: PERRLA and EOMI. ENT: Nares clear, no rhinorrhea or epistaxis. Mucous membranes moist. Oropharynx without tonsillar hypertrophy exudate or other lesions. Bilateral TMs pearly cummings non-bulging NECK: Supple. No adenopathy or masses. CHEST: Clear to auscultation. No respiratory distress. No wheezes rales or rhonchi HEART: Regular rate and rhythm. No murmur heard. Normal peripheral pulses. ABDOMEN: Soft, nontender, nondistended, normal active bowel sounds. EXTREMITIES: Normal range of motion. No edema. Strength equal in bilateral upper and lower extremities (5/5) SKIN: Warm, dry, no rash. NEURO: No focal deficits. Alert and oriented x3. Cranial nerves II through XII grossly intact PSYCH: Normal mood and affect Course Course Emergency Course: Patient was updated on work-up. Reports relief with IV fluids, Reglan, and Tylenol. Vital Signs Vital signs: Vital Signs Temperature 98.2 F 01/29/23 18:01 Pulse Rate 60 01/29/23 18:01 Respiratory Rate 16 01/29/23 18:01 Blood Pressure 124/72 01/29/23 18:01 Pulse Oximetry 98 01/29/23 18:01 Temperature 98.2 F 01/29/23 18:01 Pulse Rate 79 01/29/23 23:41 Respiratory Rate 18 01/29/23 23:41 Blood Pressure 127/86 01/29/23 23:41 Pulse Oximetry 100 01/29/23 23:41 Procedures Other Procedure Procedure 1: Other Procedure: Bedside ultrasound shows intrauterine with activity MDM - Nausea/Vomiting/Diarrhea MDM Narrative Medical decision making narrative:
[2023-01-30 00:19] LABS: Add Urine Microscopic? YES
[2023-01-30 02:44] LABS: Influenza A QL RT-PCR Negative (Negative); Influenza B QL RT-PCR Negative (Negative); SARS-CoV-2 RNA PCR Negative (Negative)
[2023-01-30 03:17] VITALS: BP 120/75; PULSE 88; RESP 18; O2SAT 100
== END 2023-01-30 03:15 | disposition home or self-care (01) ==
PROVIDERS: Emergency Provider Physician Assistant; PCP Physician Assistant
DX: O21.9 Vomiting of pregnancy, unspecified (principal); O26.891 Other specified pregnancy related conditions, first trimester; R51.9 Headache, unspecified; Z3A.08 8 weeks gestation of pregnancy; Z20.822 Contact with and (suspected) exposure to COVID-19
CPT/HCPCS: 36415; 80053; 81001; 83690; 84702; 85025; 87086; 87088; 87636; 96361; 96374; 96375; 99284; A9270; J1200; J2765; J7030

== ENCOUNTER 2025-02-18 11:18 | Emergency (ER) | payer OTHER, SELFPAY ==
[2025-02-18] VITALS (7 sets, daily range): BP systolic 108–145; BP diastolic 70–92; PULSE 65–80; RESP 15–16; TEMP 36.5–36.8; O2SAT 100
--- NOTE | ~2025-02-18 | US_ITS ---
EXAMINATION: US OB <= 14 weeks fetus DATE: 02/18/2025 12:57 INDICATION: Vaginal bleeding during first trimester TECHNIQUE: Real-time pelvic ultrasound utilizing transabdominal probe was performed. The interpreting radiologist was not present for the study. COMPARISON: None. FINDINGS: The uterus measures 10.8 x 4.5 x 5.5 cm. The endometrial complex measures4 mm in thickness.There is no evident intrauterine gestational sac or endometrial fluid. The right ovary measures 2.5 x 1.9 x 1.7 cm. The left ovary measures 3.3 x 2.9 x 1.5 cm. Vascular flow identified in both ovaries on color Doppler. No abnormal adnexal masses identified. There is no free fluid in the pelvis. IMPRESSION: 1. No evident intrauterine gestational sac for which differential would include early, failed or ectopic . No evident adnexal lesions to elevate suspicion for ectopic . Reviewed, dictated and finalized at location A. IMPRESSION: 1. No evident intrauterine gestational sac for which differential would include early, failed or ectopic . No evident adnexal lesions to elevate susp icion for ectopic .
[2025-02-18 12:05] LABS: Hematocrit 33.7 % (37.0-47.0); Hemoglobin 10.5 g/dL (12.0-15.0); Immature Granulocyte Percent A 0.3 % (0-0.5); Lymphocytes Absolute Auto 1.87 K/mm3 (0.9-3.2); Mean Corpuscular HGB Conc 31.2 g/dl (32-36); Mean Corpuscular Hemoglobin 24.8 pg (26-34); Mean Corpuscular Volume 79.5 fl (80-100); Nucleated Red Blood Cells Absolute Auto 0.000 K/mm3 (0.0-0.012); Nucleated Red Blood Cells Perc 0.0 % (0.0-0.2); Platelet Count Result 174 k/mm3 (150-375); Red Blood Count 4.24 M/mm3 (4.2-5.4); White Blood Count 6.0 K/mm3 (4.5-10.0)
[2025-02-18 12:09] LABS: BEDSIDEPREGUCG Positive (Negative)
[2025-02-18 12:18] LABS: INR 0.9; Prothrombin Time 12.7 Seconds (11.1-14.7)
[2025-02-18 12:19] LABS: Partial Thromboplastin Time 30.3 Seconds (22.3-36.8)
[2025-02-18 12:32] LABS: Alanine Aminotransferase 10 U/L (6-35); Albumin Level 4.0 g/dL (3.5-5.1); Alkaline Phosphatase 62 U/L (38-126); Anion Gap 6 mmol/L (4-12); Aspartate Amino Transferase 18 U/L (14-36); Bilirubin,Total 0.1 mg/dL (0.2-1.3); Blood Urea Nitrogen 6 mg/dL (7-17); Calcium 8.9 mg/dL (8.4-10.2); Carbon Dioxide 26 mmol/L (22-30); Chloride 106 mmol/L (98-107); Estimated CRCL calculation 109 ml/min; Estimated Glomerular Filt Rate > 60; Glucose 91 mg/dL (65-110); Potassium 3.6 mmol/L (3.4-5.0); Sodium 138 mmol/L (137-145); Total Protein 7.1 g/dL (6.3-8.2)
--- NOTE | 2025-02-18 12:32 | ED_ITS ---
HPI - General Adult General Chief complaint: Vaginal Bleeding Stated complaint: VAG BLEEDING PREG Time Seen by Provider: 02/18/25 11:58 History of Present Illness HPI narrative: This is a 29-year-old female with a last menstrual period of 819 presenting for vaginal bleeding. Patient had a gush blood and passage of clots 1 hour prior to arrival. She has not had ultrasound yet. She does not have any abdominal pain. This was an unplanned . She does not have OB care yet. No other symptoms. Related Data Allergies Allergy/AdvReac Type Severity Reaction Status Date / Time No Known Allergies Allergy Verified 02/18/25 11:34 [facility] Past Medical History Medical History Abnormal Pap smear of cervix MAYITO III (cervical intraepithelial neoplasia grade III) with severe dysplasia CPD (cephalo-pelvic disproportion) Failed induction of labor HGSIL (high grade squamous intraepithelial dysplasia) History of chlamydia History of impaired glucose tolerance HPV (human papilloma virus) infection Obesity Surgical History Surgical History History of Family History Family History Father Diabetes mellitus Mother Diabetes mellitus Social History Social History Smoking status: Never smoker Second hand tobacco smoke exposure: No Alcohol intake: never Substance use: never Substance use type: does not use Living arrangements: with family Occupation/Education: unemployed Gender identity (if verbalized by the patient): Female Sexual Orientation (if Verbalized by the Patient): Straight or Heterosexual Spiritual care concerns: No Agree to blood products: Yes Exam 2 Narrative: APPEARANCE: No apparent distress. Head: atraumatic. EYES: EOMI, NOSE: Atraumatic NECK: Trachea midline RESPIRATORY: No increased rate of breathing clear to auscultation CARDIOVASCULAR: RRR, no peripheral edema ABDOMINAL: Non-distended soft nontender MUSCULOSKELETAl: No obvious deformities NEURO: Alert. Moving 4/4 extremities SKIN:: Warm, dry. Normal color PSYCHIATRIC: Normal affect Course Vital Signs Vital signs: Vital Signs Temperature 98.2 F 02/18/25 11:22 Pulse Rate 65 02/18/25 11:22 Respiratory Rate 16 02/18/25 11:22 Blood Pressure 133/74 02/18/25 11:22 Pulse Oximetry 100 02/18/25 11:22 Oxygen Delivery Room Air 02/18/25 11:22 Temperature 97.7 F 02/18/25 11:34 Pulse Rate 80 02/18/25 13:41 Respiratory Rate 16 02/18/25 13:38 Blood Pressure 118/85 02/18/25 13:41 Pulse Oximetry 100 02/18/25 13:38 Oxygen Delivery Room Air 02/18/25 11:34 Medical Decision Making MDM Narrative Medical decision making narrative: -Course: 21-year-old female presenting with vaginal bleeding in . No abdominal pain. Blood type O positive. HCG 1400. Transvaginal ultrasound showed nothing in the uterus and no concerning adnexal masses. Her hCG is below the discriminatory zone any hCG needs to be repeated in 48 hours. When I went to inform the patient of her results she had absconded from the ED. I called her on the phone and informed her about her results. She was instructed to follow-up with an service delivery management consultant in 48 hours to repeat her HCG. If she cannot get into an OBGYN she should come back to the emergency room. -DDX includes but is not limited to: Miscarriage, threatened miscarriage, subchorionic hemorrhage Vital Signs Vital Signs: Vital Signs Temperature 98.2 F 02/18/25 11:22 Pulse Rate 65 02/18/25 11:22 Respiratory Rate 16 02/18/25 11:22 Blood Pressure 133/74 02/18/25 11:22 Pulse Oximetry 100 02/18/25 11:22 Oxygen Delivery Room Air 02/18/25 11:22 Temperature 97.7 F 02/18/25 11:34 Pulse Rate 80 02/18/25 13:41 Respiratory Rate 16 02/18/25 13:38 Blood Pressure 118/85 02/18/25 13:41 Pulse Oximetry 100 02/18/25 13:38 Oxygen Delivery Room Air 02/18/25 11:34 Lab Data 02/18/25 11:58 02/18/25 11:58 Labs: Lab Results 02/18/25 02/18/25 02/18/25 Range/Units 11:57 11:58 12:07 WBC 6.0 (4.5-10.0) K/mm3 RBC 4.24 (4.2-5.4) M/mm3 Hgb 10.5 L D (12.0-15.0) g/dL Hct 33.7 L (37.0-47.0) % MCV 79.5 L (80-100) fl MCH 24.8 L (26-34) pg MCHC 31.2 L (32-36) g/dl RDW 17.2 H (11.5-14.5) % Plt Count 174 (150-375) k/mm3 MPV 10.7 H (7.4-10.4) fl Immature Gran % (Auto) 0.3 (0-0.5) % Neut % (Auto) 54.6 (45.5-73.1) % Lymph % (Auto) 31.4 (18.3-44.2) % [place] % (Auto) 12.2 H (2.6-8.5) % Eos % (Auto) 1.2 (0-4.4) % Baso % (Auto) 0.3 (0.2-1.2) % Lymph # (Auto) 1.87 (0.9-3.2) K/mm3 [place] # (Auto) 0.7 H (0.1-0.6) K/mm3 Eos # (Auto) 0.1 (0-0.3) K/mm3 Baso # (Auto) 0.0 (0.0-0.1) K/mm3 Abs Immat Gran (auto) 0.02 (0.00-0.031) K/mm3 Absolute Neuts (auto) 3.3 (1.3-6.7) K/mm3 Absolute Nucleated RBC 0.000 (0.0-0.012) K/mm3 Nucleated RBC % 0.0 (0.0-0.2) % PT 12.7 (11.1-14.7) Seconds INR 0.9 APTT 30.3 (22.3-36.8) Seconds Sodium 138 (137-145) mmol/L Potassium 3.6 (3.4-5.0) mmol/L Chloride 106 (98-107) mmol/L Carbon Dioxide 26 (22-30) mmol/L Anion Gap 6 (4-12) mmol/L BUN 6 L D (7-17) mg/dL Creatinine 0.67 L (0.7-1.0) mg/dL Estim Creat Clear Calc 109 ml/min Estimated GFR > 60 (59 - ) Glucose 91 (65-110) mg/dL Calcium 8.9 (8.4-10.2) mg/dL Total Bilirubin 0.1 L (0.2-1.3) mg/dL AST 18 (14-36) U/L ALT 10 (6-35) U/L Alkaline Phosphatase 62 (38-126) U/L Total Protein 7.1 (6.3-8.2) g/dL Albumin 4.0 (3.5-5.1) g/dL Beta HCG, Quant 1410.50 mIU/ML POC Urine HCG, Qual Positive (Negative) Blood Type O Positive Antibody Screen Negative Doses of RhIg Required 0 Discharge Plan Discharge Clinical Impression: Vaginal bleeding in Patient Disposition: Elopement After Seen by Prov Patient Language: Turkmen Prescriptions: No Action metoclopramide HCl 10 mg tablet 10 mg PO Q8H PRN (Reason: nausea and vomiting) Qty: 14 0RF Follow-up/Referrals: UNKNOWN,DOCTOR [Primary Care Provider]
[2025-02-18 12:47] LABS: Beta HCG Quantitative 1410.50 mIU/ML
--- OUTSIDE RECORDS SUMMARY | 2025-02-18 14:33 | XMS_ITS | Clinical Summary ---
Author Organization [facility] Address [address] [place] [id number] Care Team Providers Care Credit Collection Associate Name Role Phone None, Provider MD Primary Care Provider Unavaila ble Allergies No known active allergies Medications Vit-DSS-Fe Fum-FA ( 19) Tab Take 1 tablet by mouth daily. 30 tablet 07/28/2019 Active folic acid 1 MG tablet Take 3 tablets (3 mg total) by mouth daily. 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 Temperature 37 C (98.6 F) 07/28/2019 1:20 PM LAPPING 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 Respiratory Rate 18 07/28/2019 5:42 PM LAPPING 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 Oxygen Saturation 97% 07/28/2019 5:42 PM LAPPING 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 Inhaled Oxygen Concentration - - Weight 70.8 kg (156 lb) 07/28/2019 1:20 PM LAPPING 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 Height 162.6 cm (5' 4) 07/28/2019 1:20 PM LAPPING 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 Body Mass Index 26.78 07/28/2019 1: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 Plan of Treatment Health Maintenance Due Date Last Done Comments Cervical Cancer Screening Pa p Smear (Age 21 to 29) Every 3 Years 1996 Cervical Cancer Screening 1996 Annual Physical 11/17/1999 Hepatitis C 2014 DTaP, Tdap and Td Vaccines ( 1 - Tdap) 11/17/2015 Hepatitis B Vaccines (1 of 3 - 19+ 3-dose series) 11/17/2015 HPV Vaccines (1 - 3-dose SCD M series) 11/17/2023 COVID-19 Vaccine (1 - 2023-2 5 season) 2025 Meningococcal B Vaccine Aged Out No l onger eligible based on patient's age to complete this topic Meningococcal Vaccine Aged Out No ester dean eligible based on patient's age to complete this topic Pneumococcal Vaccine: Pediat rics (0 to 5 Years) and At-Risk Patients (6 to 49 Years) Aged Out No longer eligible b ased on patient's age to complete this topic RSV Immunizations Under 20 Months Aged Out No longer eligible based on patient's age to complete this topic Insurance [id number] [id number] Care Teams Credit Collection Associate Relationship Specialty Start Date End Date None, Provider, PCP - General 07/28/19
--- OUTSIDE RECORDS SUMMARY | 2025-02-18 14:33 | XMS_ITS | Clinical Summary ---
Author Organization [facility] Care Team Providers Care Carbon Sequestration Plant Engineer Name Role Phone Unavailable Primary Care Provider Unavailabl e Social History Tobacco Use Types Packs/Day Years Used Date Smoking Tobacco: Never Assessed Comments Unknown Sex and Gender Information Value Date Recorded Sex Assigned at Not on file Legal Sex Female 12:50 PM CDT Gender Identity Not on file Sexual Orientation Not on file Plan of Treatment Health Maintenance Due Date Last Done Comments Hepatitis C Virus (HCV) Screening 1996 TdaP Immunization 1996 Hepatitis B Immunization (1 of 3 - 19+ 3-dose series) 11/17/2015 Human Papillomavirus (HPV) Immunization (1 - 3-dose SCDM series) 11/17/2023 SARS-COV-2 Immunization ( - 2023- season) 2024 Influenza Immunization (#1) 2025 Respiratory Syncytial Virus (RSV) Immunization (Adult) (1 - 1-dose 75+ series) 11/17/2071 Meningococcal Immunization (ACWY) Aged Out No longer eligible based on patient's age to complete this topic Pneumococcal Immunization Combined Aged Out No longer eligible based on patient's age to complete this topic Rotavirus Immunization Aged Out No lo nger eligible based on patient's age to complete this topic
--- OUTSIDE RECORDS SUMMARY | 2025-02-18 14:33 | XMS_ITS | Clinical Summary ---
Author Organization [facility] Address [address] [place] [address] Care Team Providers Care Field Clerk Name Role Phone Daisy Jaeger MD Primary Care Provide r Source Comments [facility],non-owned Affiliates and Associated Physician Practices is amultiple site organization consisting of ambulatory clinics and hospital sitesin [place], [place], [place] and [place]. This disclosure is being madepursuant to the Care Everywhere program and may not contain all information available regarding this patient. Last updated 18.[facility] Allergies No known active allergies Medications * Be aware that medications may not be up to date on this document. Alwaysverify current medications with the patient. 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 Gender Identity Not on file Sexual Orientation Not on file Last Filed Vital Signs Vital Sign Reading Time Taken Comments Blood Pressure - - Pulse - - Temperature - - Respiratory Rate - - Oxygen Saturation - - Inhaled Oxygen Concentration - - Weight 54.4 kg (120 lb) 10/26/2011 1:06 PM CDT Height 159.4 cm (5' 2.75) 10/26/2011 1:06 PM CD T Body Mass Index 21.43 10/26/2011 1:06 PM CDT Plan of Treatment Health Maintenance Due Date Last Done Comments HIV SCREENING 11/17/2011 HEPATITIS C SCREENING 11/12/2014 DTAP/TDAP/TD VACCINES (1 - Tdap) 11/17/2015 HEPATITIS B VACCINE (1 of 3 - 19+ 3-dose series) 11/17/2015 PAP SMEAR 2017 HPV VACCINE (1 - 3-dose SCDM series) 11/17/2023 DEPRESSION SCREENING 05/27/2024 COVID-19 VACCINE (1 - 2023-2 5 season) 2025 INFLUENZA VACCINE (#1) 2025 ZOSTER VACCINE (1 of 2) 2046 HIB VACCINE Aged Out No longer eligi ble based on patient's age to complete this topic MENINGOCOCCAL (Group B) VACC INE SHARED DECISION-MAKING Aged Out No longer eligibl e based on patient's age to complete this topic MENINGOCOCCAL GROUPS A/C/Y/W VACCINE Aged Out No longer eligible b ased on patient's age to complete this topic PNEUMOCOCCAL VACCINE Aged Out No long er eligible based on patient's age to complete this topic Insurance [facility] [address] [address] * Guarantor: ALEXSANDER MAGDALENO Account Type Relation to Patient Date of Phone Billing Address Personal/Family Other [address] [phone] Care Teams Field Clerk Relationship Specialty Start Date End Date Daisy Jaeger MD [address], [phone] PCP - General 10/01/11
--- NOTE | 2025-02-18 14:43 | PC.NURSE ---
This RN was informed that pt ambulated out of ED using steady gait. Pt IV removed by triage nurse prior to pt leaving. ED charge and EDP made aware
== END 2025-02-18 14:45 | disposition left against medical advice (07) ==
LOC: ANHED 12:03
PROVIDERS: Emergency Medicine; Emergency Provider Emergency Medicine
DX: O46.90 Antepartum hemorrhage, unspecified, unspecified trimester (principal); Z3A.00 Weeks of gestation of pregnancy not specified
CPT/HCPCS: 36415; 76801; 80053; 81025; 84702; 85025; 85461; 85610; 85730; 86850; 86900; 86901; 99284

== ENCOUNTER 2025-02-18 21:57 | Emergency (ER) | payer OTHER, SELFPAY ==
[2025-02-18] VITALS (7 sets, daily range): BP systolic 112–133; BP diastolic 74–95; PULSE 65–86; RESP 18; TEMP 36.7; O2SAT 96–100
[2025-02-18 22:16] LABS: Hematocrit 33.4 % (37.0-47.0); Hemoglobin 10.4 g/dL (12.0-15.0); Immature Granulocyte Percent A 0.3 % (0-0.5); Lymphocytes Absolute Auto 2.18 K/mm3 (0.9-3.2); Mean Corpuscular HGB Conc 31.1 g/dl (32-36); Mean Corpuscular Hemoglobin 24.9 pg (26-34); Mean Corpuscular Volume 80.1 fl (80-100); Nucleated Red Blood Cells Absolute Auto 0.000 K/mm3 (0.0-0.012); Nucleated Red Blood Cells Perc 0.0 % (0.0-0.2); Platelet Count Result 174 k/mm3 (150-375); Red Blood Count 4.17 M/mm3 (4.2-5.4); White Blood Count 6.7 K/mm3 (4.5-10.0)
[2025-02-18 22:28] LABS: Alanine Aminotransferase 10 U/L (6-35); Albumin Level 4.1 g/dL (3.5-5.1); Alkaline Phosphatase 58 U/L (38-126); Anion Gap 6 mmol/L (4-12); Aspartate Amino Transferase 20 U/L (14-36); Bilirubin,Total 0.3 mg/dL (0.2-1.3); Blood Urea Nitrogen 8 mg/dL (7-17); Calcium 9.2 mg/dL (8.4-10.2); Carbon Dioxide 27 mmol/L (22-30); Chloride 104 mmol/L (98-107); Estimated CRCL calculation 102 ml/min; Estimated Glomerular Filt Rate > 60; Glucose 88 mg/dL (65-110); Potassium 3.9 mmol/L (3.4-5.0); Sodium 137 mmol/L (137-145); Total Protein 7.3 g/dL (6.3-8.2)
[2025-02-18 22:30] LABS: INR 1.0; Partial Thromboplastin Time 30.5 Seconds (22.3-36.8); Prothrombin Time 13.3 Seconds (11.1-14.7)
[2025-02-18 22:45] LABS: Beta HCG Quantitative 1145.90 mIU/ML
[2025-02-18 22:56] LABS: Add Urine Microscopic? YES; Appearance Urine Cloudy (Clear); Glucose Urine UA Negative (Negative); Leukocyte Esterase Ur 1+ LEU/UL (Negative); Nitrate Urine Negative (Negative); Non Pathogenic Casts 0-2; Specific Grav Ur 1.017 (1.001-1.035)
--- NOTE | 2025-02-18 23:23 | ED_ITS ---
HPI - Female Genitourinary General Chief complaint: Vaginal Bleeding Stated complaint: HEAVY VAG BLEED S/P MISCARRIAGE AT 1100. Time Seen by Provider: 02/18/25 22:02 History of Present Illness HPI Narrative: Patient is a 29-year-old female who presents to the ER with concerns of lightheadedness following a miscarriage. She reports she believes she had a miscarriage around 11:00 a.m. earlier today. Patient reports she came here for evaluation but had to leave for work. She reports she started experiencing lightheadedness at work, so she decided to come back for re- evaluation. Patient reports her vaginal bleeding has slowed down. She endorses intermittent cramping and passed 1 large clot earlier today. Patient reports this is her 3rd with 2 live births. She denies any other medical history relevant to this ER visit. Patient denies any recent fevers, urinary symptoms, acute back pain. 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) Failed induction of labor Abnormal Pap smear of cervix History of chlamydia History of impaired glucose tolerance Obesity Surgical History Surgical History History of Family History Family History Father Diabetes mellitus Mother Diabetes mellitus Social History Social History Smoking status: Never smoker Second hand tobacco smoke exposure: No Alcohol intake: never Substance use: never Substance use type: does not use Living arrangements: with family Occupation/Education: unemployed Gender identity (if verbalized by the patient): Female Sexual Orientation (if Verbalized by the Patient): Straight or Heterosexual Spiritual care concerns: No Agree to blood products: Yes Exam 2 Narrative: GENERAL: Well appearing, obese, non-toxic, in no acute distress. HEAD: Normocephalic, atraumatic. NECK: Supple. No adenopathy, no masses. RESPIRATORY: Airway patent, respirations nonlabored. Clear to auscultation bilaterally, no rales, rhonchi, wheezing. CARDIOVASCULAR: Regular rate and rhythm without murmurs, rubs, or gallops. Peripheral pulses 2+ and equal bilaterally. ABDOMINAL: Soft, mildly tender bilateral lower quadrants, nondistended, no hepatosplenomegaly. Normoactive BS. MUSCULOSKELETAL: Moves all extremities. Strength/ROM intact without gross deformities. SKIN: Warm, dry, normal color. No rashes. NEURO: A&O X3. Speech clear. Cranial nerves II-XII intact. No ataxic movements. PSYCHIATRIC: Appropriate mood and affect. Normal interaction. Course Vital Signs Vital signs: Vital Signs Temperature 36.7 C 02/18/25 21:55 Pulse Rate 65 02/18/25 21:55 Respiratory Rate 18 02/18/25 21:55 Pulse Oximetry 100 02/18/25 21:55 Oxygen Delivery Room Air 02/18/25 21:55 Temperature 36.7 C 02/18/25 21:55 Pulse Rate 71 02/18/25 23:34 Respiratory Rate 18 02/18/25 23:34 Blood Pressure 116/95 H 02/18/25 23:34 Pulse Oximetry 96 02/18/25 23:34 Oxygen Delivery Room Air 02/18/25 21:55 MDM - Female Genitourinary MDM Narrative Medical decision making narrative: Patient is a 29-year-old female who presents to the ER with concerns of lightheadedness following a miscarriage. She reports she believes she had a miscarriage around 11:00 a.m. earlier today. Patient reports she came here for evaluation but had to leave for work. She reports she started experiencing lightheadedness at work, so she decided to come back for re- evaluation. Patient reports her vaginal bleeding has slowed down. She endorses intermittent cramping and passed 1 large clot earlier today. Patient reports this is her 3rd with 2 live births. She denies any other medical history relevant to this ER visit. Patient denies any recent fevers, urinary symptoms, acute back pain. Labs Ordered: CMP, CBC, PTT, INR, beta hCG, UA Imaging Ordered: None necessary Medications Ordered: 1 L normal saline IV bolus, Bactrim p.o. Results: Patient's CBC was largely unchanged from her results this morning. Her coags are within normal limits. Patient's chemistry indicated no acute abnormalities. Her beta hCG is 1145 which has dropped minimally from her hCG results this morning. Diagnosis: Patient's urinalysis indicates she has a UTI. Consults: OBGYN (outpatient) Patient Education/Shared MDM: Results of lab work shared with patient. She endorses improvement of symptoms following medication administration. Her orthostatic blood pressure readings do not indicate any abnormalities. Patient strongly advised to maintain hydration status upon discharge and follow-up with her OBGYN as soon as possible. She will be discharged home with a prescription for Bactrim. Strict return precautions provided. Patient verbalized understanding and is in agreement with plan. Vital signs stable at time of discharge. All questions answered. Differential Diagnosis Differential diagnosis: Likely urinary tract infection, dysmenorrhea and other (Threatened miscarriage, anemia) Lab Data Attestation: I reviewed the patient's lab results. 02/18/25 22:11 02/18/25 22:11 Labs: Lab Results 02/18/25 02/18/25 Range/Units 22:11 22:45 WBC 6.7 (4.5-10.0) K/mm3 RBC 4.17 L (4.2-5.4) M/mm3 Hgb 10.4 L (12.0-15.0) g/dL Hct 33.4 L (37.0-47.0) % MCV 80.1 (80-100) fl MCH 24.9 L (26-34) pg MCHC 31.1 L (32-36) g/dl RDW 17.3 H (11.5-14.5) % Plt Count 174 (150-375) k/mm3 MPV 11.1 H (7.4-10.4) fl Immature Gran % (Auto) 0.3 (0-0.5) % Neut % (Auto) 54.0 (45.5-73.1) % Lymph % (Auto) 32.7 (18.3-44.2) % [place] % (Auto) 11.9 H (2.6-8.5) % Eos % (Auto) 0.8 (0-4.4) % Baso % (Auto) 0.3 (0.2-1.2) % Lymph # (Auto) 2.18 (0.9-3.2) K/mm3 [place] # (Auto) 0.8 H (0.1-0.6) K/mm3 Eos # (Auto) 0.1 (0-0.3) K/mm3 Baso # (Auto) 0.0 (0.0-0.1) K/mm3 Abs Immat Gran (auto) 0.02 (0.00-0.031) K/mm3 Absolute Neuts (auto) 3.6 (1.3-6.7) K/mm3 Absolute Nucleated RBC 0.000 (0.0-0.012) K/mm3 Nucleated RBC % 0.0 (0.0-0.2) % PT 13.3 (11.1-14.7) Seconds INR 1.0 APTT 30.5 (22.3-36.8) Seconds Sodium 137 (137-145) mmol/L Potassium 3.9 (3.4-5.0) mmol/L Chloride 104 (98-107) mmol/L Carbon Dioxide 27 (22-30) mmol/L Anion Gap 6 (4-12) mmol/L BUN 8 (7-17) mg/dL Creatinine 0.74 (0.7-1.0) mg/dL Estim Creat Clear Calc 102 ml/min Estimated GFR > 60 (59 - ) Glucose 88 (65-110) mg/dL Calcium 9.2 (8.4-10.2) mg/dL Total Bilirubin 0.3 (0.2-1.3) mg/dL AST 20 (14-36) U/L ALT 10 (6-35) U/L Alkaline Phosphatase 58 (38-126) U/L Total Protein 7.3 (6.3-8.2) g/dL Albumin 4.1 (3.5-5.1) g/dL Beta HCG, Quant 1145.90 mIU/ML Urine Color Yellow (Yellow) Urine Appearance Cloudy H (Clear) Urine pH 8.0 (5.0-9.0) Ur Specific [place] 1.017 (1.001-1.035) Urine Protein Trace (Negative) mg/dL Urine Glucose (UA) Negative (Negative) mg/dL Urine Ketones Negative (Negative) mg/dL Ur Blood (Man) 3+ H (Negative) Urine Nitrate Negative (Negative) Urine Bilirubin Negative (Negative) Urine Urobilinogen 1.0 (<2.0) mg/dL Leukocyte Esterase Rfl 1+ H (Negative) ESTHER/UL Urine RBC 21-50 H (0-2) /hpf Urine WBC 11-20 H (0-3) /hpf Ur Squamous Epith Cells Few (Few) /hpf Urine Bacteria 1+ H /hpf Urine Casts 0-2 Discharge Plan Discharge Clinical Impression: Vaginal bleeding, Miscarriage at 8 to 28 weeks gestation, Urinary tract infection Patient Disposition: Home Condition: Stable Instructions: Antibiotic Form, Miscarriage (ED), Urinary Tract Infection in (ED) Additional Instructions: Please return to the ER with any worsening symptoms. Follow-up with your OBGYN as soon as possible. Take all medications as prescribed, including regularly scheduled medications. Complete your full dose of antibiotics. Patient Language: Croatian Prescriptions: New sulfamethoxazole-trimethoprim [Bactrim DS] 800-160 mg tablet 1 tablet PO Q12H 5 Days Qty: 10 0RF No Action metoclopramide HCl 10 mg tablet 10 mg PO Q8H PRN (Reason: nausea and vomiting) Qty: 14 0RF Follow-up/Referrals: Jackson Abad MD [Physician, AD COPY WRITER] Referral Note: OBGYN Oscar Carlson MD [Physician, AD COPY WRITER] Referral Note: OBGYN UNKNOWN,DOCTOR [Primary Care Provider] Puneet Delgadillo MD [Physician, AD COPY WRITER] Referral Note: OBGYN Stand Alone Forms: Work/School Release IP Time of Disposition: 00:35
[2025-02-18] MEDS: SULFAMETHOXAZOLE/TRIMETHOPRIM 800/160 MG DS TABLET 1 TAB PO (23:28)
[2025-02-18] MEDS: SODIUM CHLORIDE 0.9% IV 1,000 ML 999 ML IV CONT (23:28)
[2025-02-19 00:55] VITALS: BP 113/79; PULSE 70; RESP 12; O2SAT 100
== END 2025-02-19 00:52 | disposition home or self-care (01) ==
PROVIDERS: Emergency Provider Registered Nurse
DX: O03.9 Complete or unspecified spontaneous abortion without complication (principal); O03.88 Urinary tract infection following complete or unspecified spontaneous abortion; N39.0 Urinary tract infection, site not specified; O99.210 Obesity complicating pregnancy, unspecified trimester; E66.9 Obesity, unspecified; Z3A.00 Weeks of gestation of pregnancy not specified
CPT/HCPCS: 36415; 80053; 81001; 84702; 85025; 85610; 85730; 87086; 96360; 99283; A9270; J7030